=== PATIENT | male | born 1975 | race Caucasian/White ===

== ENCOUNTER 2022-08-31 07:34 | Day surgery (SDC) | payer OTHER ==
[~2022-08-31] VITALS: Ht 177.8 cm; Wt 56.7 kg
[2022-08-31 10:12] VITALS: BP 113/74
== END 2022-08-31 10:25 | disposition home or self-care (01) | DRG 392 ==
LOC: ENDO 07:34 → ORM 08:00 → ENDO 10:25
PROVIDERS: ATTEND Internal Medicine Gastroenterology
PROC: 0DB58ZX Excision of Esophagus, Via Natural or Artificial Opening Endoscopic, Diagnostic (ICD-10-PCS; principal; 2022-08-31)
PROC: 0DB78ZX Excision of Stomach, Pylorus, Via Natural or Artificial Opening Endoscopic, Diagnostic (ICD-10-PCS; 2022-08-31)
PROC: 0DB68ZX Excision of Stomach, Via Natural or Artificial Opening Endoscopic, Diagnostic (ICD-10-PCS; 2022-08-31)
PROC: 0DBP8ZX Excision of Rectum, Via Natural or Artificial Opening Endoscopic, Diagnostic (ICD-10-PCS; 2022-08-31)
PROC: 0DBN8ZX Excision of Sigmoid Colon, Via Natural or Artificial Opening Endoscopic, Diagnostic (ICD-10-PCS; 2022-08-31)
DX: K29.50 Unspecified chronic gastritis without bleeding (principal); K50.10 Crohn's disease of large intestine without complications; K31.7 Polyp of stomach and duodenum; K22.89 Other specified disease of esophagus; K64.8 Other hemorrhoids; K62.89 Other specified diseases of anus and rectum; Z86.16 Personal history of COVID-19